=== PATIENT | male | born 1960 | race Caucasian/White ===

== ENCOUNTER → 2021-01-07 09:26 | Outpatient (CLI) | payer OTHER, SELFPAY ==
--- NOTE | ~2021-01-07 | XR_ITS ---
EXAMINATION: XR chest 2V DATE: 01/07/2021 09:53 INDICATION: Nonproductive cough TECHNIQUE: PA and lateral views of the chest are obtained. COMPARISON: None available FINDINGS: There is minimal opacity of the left lower lobe. There is no pleural effusion or pneumothor ax. The cardiomediastinal silhouette is normal. There is mild thoracic spondylosis. IMPRESSION: 1. Minimal left lower lobe airspace opacity which could be infectious or inflammatory. Recommend foll owup radiographs in 10-14 days after appropriate therapy to evaluate for improvement/resolution. Reviewed, dictated and finalized at location A. IMPRESSION: 1. Minimal left lower lobe airspace opacity which could be infectious or inflam matory. Recommend followup radiographs in 10-14 days after appropriate therapy to evaluate for improvement/resolution.
== END ==
PROVIDERS: PCP Physician Assistant; Visit Provider Physician Assistant
DX: R05 Cough (principal)
CPT/HCPCS: 71046